=== PATIENT | female | born 1970 | race Caucasian/White ===

== ENCOUNTER → 2020-12-22 | Outpatient (CLI) | payer BC, OTHER | LOC: RAD 20:50 | DX: M79.671 Pain in right foot (principal); M79.672 Pain in left foot; S92.912A Unspecified fracture of left toe(s), initial encounter for closed fracture | CPT/HCPCS: 73620 ==

== ENCOUNTER 2021-03-25 10:03 | Emergency (ER) | payer BC, OTHER ==
[2021-03-25 11:48] LABS: HEMOGLOBIN 13.8 gm/dl (12.3-15.3); RED BLOOD COUNT 4.95 M/UL (4.00-5.10); WHITE BLOOD COUNT 10.7 K/UL (4.5-11.0)
[2021-03-25] MEDS ORDERED: PHENERGAN 25 MG25 M1 PO (14:11)
== END 2021-03-25 14:18 | disposition home or self-care (01) ==
LOC: ER1 10:03
PROVIDERS: Physician Assistant
DX: G89.18 Other acute postprocedural pain (principal); E86.0 Dehydration; Z88.2 Allergy status to sulfonamides; Z88.7 Allergy status to serum and vaccine; Z91.041 Radiographic dye allergy status
CPT/HCPCS: 80053; 81001; 85025; 96374; 99284; J2405